=== PATIENT | male | born 1980 | race African-American/Black ===

== ENCOUNTER 2018-12-11 22:45 | Emergency (ER) | payer OTHER ==
[~2018-12-11] VITALS: Ht 172.7 cm; Wt 94.3 kg
[~2018-12-11 22:45] MED LIST: LISI10TA2 PO; METO-239 PO
[2018-12-12] MEDS ORDERED: IBUPROFEN 400 MG TABLET. PO ONE
[2018-12-12] MEDS ORDERED: HYDROcodone/APAP 5/325MG 1 TAB TABLET PO ONE
[2018-12-12] MEDS ORDERED: DIPHTH,PERTUSS(ACELL),TET TOX 0.5 ML DISP.SYRIN. VAX IM ONE
[2018-12-12] MEDS ORDERED: HYDR-3164 PO (01:20)
--- NOTE | 2018-12-12 01:21 | PHYS DOC ---
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 He denies any other injuries. He reports he did have a ring on his lt ring finger which he was able to cut off after injury. He has multiple small lacerations on lt hand with lt hand swelling. 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 He is not UTD on tetanus in past 5 yrs. He is rt hand dominant. (TL MERCER APRN) Review of Systems Review of Systems Musculoskeletal: Denies lt wrist/elbow pain. Reports lt hand pain Integument: Reports swelling/lacerations Neurologic: Denies focal weakness or sensory changes [] All other systems were reviewed and found to be within normal limits, except as documented in this note. (TL MERCER APRN) Current Medications Current Medications Current Medications Medications (Trade) Dose Ordered Sig/Kendrick Start Time Stop Time Status Last Admin Dose Admin Acetaminophen/ Hydrocodone Bitart (Lortab 5/325) 1 tab 1X ONCE 12/12/18 00:00 12/12/18 00:01 DC 12/12/18 00:07 1 TAB Diphtheria/ Tetanus/Acell Pertussis (Boostrix) 0.5 ml ONCE ONCE 12/12/18 00:00 12/12/18 00:01 DC 12/12/18 00:09 0.5 ML Ibuprofen (Motrin) 800 mg 1X ONCE 12/12/18 00:00 12/12/18 00:01 DC 12/12/18 00:07 800 MG (TALITA JOHNSON DO) Allergies Allergies Allergies Coded Allergies Type Severity Reaction Last Updated Verified No Known Drug Allergies 06/21/16 No (TALITA JOHNSON DO) Physical Exam Physical Exam Constitutional: Well developed, well nourished, no acute distress, non-toxic appearance. [] HENT: Normocephalic, atraumatic, oropharynx moist, nose normal. [] Eyes: Pupils equal, conjunctiva normal, no discharge. [] Neck: Normal range of motion, no tenderness, supple, no stridor. [] Cardiovascular: Heart rate regular Lungs & Thorax: Resp. equal/nonlabored Skin: Warm, dry Back: No tenderness, full ROM Extremities: No cyanosis, no clubbing, ROM intact- c/o increased pain in rt hand /fingers with ROM, tender on palp of lt hand dorsal/palm surface with swelling at base of fingers into dorsal surface hand. Laceration between lt ring/middle finger, palm, and lt ring finger palm surface- sm. amt of bleeding on initial exam. No wrist tenderness/deformity- full ROM. 2+ radial. Brisk cap. refill all fingers. Neurologic: Alert and oriented X 3, normal motor function, normal sensory function, no focal deficits noted. [] Psychologic: Affect normal, judgement normal, mood normal. [] (TL MERCER APRN) Current Patient Data Vital Signs Vital Signs Date Time Temp Pulse Resp B/P (MAP) Pulse Ox O2 Delivery O2 Flow Rate FiO2 12/12/18 01:38 78 20 160/116 (131) 99 Room Air 12/11/18 23:24 98.3 98.3 (TALITA JOHNSON DO) EKG EKG [] (TL MERCER APRN) Radiology/Procedures Radiology/Procedures [] (TL MERCER APRN) Radiology/Procedures PROCEDURE: HAND LEFT 3V 3 views left hand AP lateral oblique views The visualized osseous structures appear normal. IMPRESSION: No acute findings. Electronically signed by: Ishan Robb III, MD (12/12/2018 3:53 AM) [facility] (TALITA JOHNSON DO) Course & Med Decision Making Course & Med Decision Making Pertinent Imaging studies reviewed. (See chart for details) Pt was evaluated in the ER after a crush type injury to his left hand just [employer]PUTER T[employer]ET[employer] KEYLINER to ER. Pt had xray obtained which was viewed by Dr. Johnson as radiology report is pending- there is concern for possible nondisplaced fx at base of 3rd finger with no other obvious fxs on imaging. This was discussed with pt and his . Discussed plans for Volar splint after wounds were cleaned again and steri strips/drsgs were applied. Pt remains PMS intact in lt hand and reports with meds received pain has improved. RN provided wound care w/steri strips to 2 wounds on pt's hand and applied volar splint- on re-eval after splint pt has good sensation in fingers with brisk cap. refill all fingers. Skin color NL distal/proximal to splint. Discussed need for f/u with hand specialist and so will provide [facility]. info on d/c paperwork. Pt was updated on Tetanus while in the ER. Will provide Pettibone Rx with d/c paperwork. Education provided on wound care and monitoring wounds for infection. Educaiton provided on monitoring vascular condition in lt hand. Discharge instructions were discussed and education provided on s&s to return to ER for. (TL MERCER APRN) Dragon Disclaimer Dragon Disclaimer This electronic medical record was generated, in whole or in part, using a voice recognition dictation system. (TL MERCER APRN) Departure Departure Impression: Primary Impression: Hand crush injury Additional Impressions: Laceration Skin wound closed with sterile strip Disposition: 01 HOME, SELF-CARE Condition: STABLE Referrals: IRVIN SYED MD (PCP) Patient Instructions: Hand Fracture, Laceration Care, Adult, RICE - Routine Care for Injuries, Sterile Tape Wound Closure, Tissue Adhesive Wound Care, Easy- to-Read Additional Instructions: Tylenol and/or iburprofen as needed for pain as directed on container. If pain is severe you can take the prescribed pain medication- no drinking alcohol or driving while taking the Pettibone. Ice pack to splint every 3-4 hours for 20-30 minutes at a time. You should have follow-up with a hand specialist this week for re-evaluation of hand wounds and for fracture in left hand. [facility] has hand specialist - [phone] to schedule appointment. As discussed you will need to monitor the wounds on the left hand for infection and then reapply the splint after dressing changes. 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 I was available for consultation as needed during the patient's visit in the emergency department. I agree with the clinical impression, plan, and disposition. (TALITA JOHNSON DO) Problem Qualifiers TL MERCER SINGLE STAYER OPERATOR Dec 12, 2018 01:21 TALITA JOHNSON DO Dec 30, 2018 13:11
[2018-12-12 01:38] VITALS: BP 160/116
--- NOTE | 2018-12-12 03:56 | RAD ---
3 views left hand AP lateral oblique views The visualized osseous structures appear normal. IMPRESSION: No acute findings. Electronically signed by: Ishan Robb III, MD (12/12/2018 3:53 AM) [facility] [id number]
== END 2018-12-12 01:38 | disposition home or self-care (01) ==
LOC: ER 22:45
DX: S61.412A Laceration without foreign body of left hand, initial encounter (principal); W23.0XXA Caught, crushed, jammed, or pinched between moving objects, initial encounter; Y93.89 Activity, other specified; Y92.89 Other specified places as the place of occurrence of the external cause; Y99.8 Other external cause status
CPT/HCPCS: 29125; 73130; 90471; 90715; 99283